=== PATIENT | female | born 1970 | race Caucasian/White ===

== ENCOUNTER → 2016-06-03 | Outpatient (CLI) | payer SELFPAY ==
[~2016-06-03] MED LIST: ABILIFY5 MG PO; ASPIR 8181 M1 PO; CITRUS CALCIUM1 EAC1 PO; CLARITIN,ALAVAR10 MG PO; COUMADIN,JANTOVE5 MG PO; COUMADIN4 MG PO; COUMADIN6 MG PO; CRESTOR10 MG PO; Celexa PO; FEOSOL325 MG PO; GEODON60 MG PO; IRON325 MG PO; LEVOTHROID112 MCG PO; LEVOXYL137 MCG PO; LOPRESSOR25 MG PO; MULTI PURPOSE MC; NASONEX17 GM BOTH NARES; PLAVIX75 MG PO; PROTONIX40 MG PO; THERAGRAN1 TABLET PO; TRILAFON8 M1 PO; Tums PO; WELLBUTRIN XL150 MG PO; ZYRTEC10 M3 PO; Zocor PO; [UNRECOGNIZED DRUG - OTHER] PO
== END | disposition home or self-care (01) ==
LOC: NUC 08:25
DX: R07.9 Chest pain, unspecified (principal); I10 Essential (primary) hypertension; Z95.2 Presence of prosthetic heart valve; Z87.891 Personal history of nicotine dependence
CPT/HCPCS: 78452; 93017; A9500; J2785

== ENCOUNTER → 2017-02-04 | Outpatient (CLI) | payer OTHER | END | disposition home or self-care (01) | LOC: RAD 10:50 | DX: I63.8 Other cerebral infarction (principal); G93.89 Other specified disorders of brain | CPT/HCPCS: 70450 ==

== ENCOUNTER → 2017-08-12 | Outpatient (CLI) | payer SELFPAY | END | disposition home or self-care (01) | LOC: EKG 13:00 | DX: I07.1 Rheumatic tricuspid insufficiency (principal) | CPT/HCPCS: 93306 ==

== ENCOUNTER → 2017-09-20 | Outpatient (CLI) | payer SELFPAY | END | disposition home or self-care (01) | LOC: RAD 08:14 | DX: N28.1 Cyst of kidney, acquired (principal); R39.198 Other difficulties with micturition; R35.0 Frequency of micturition; N18.3 Chronic kidney disease, stage 3 (moderate) | CPT/HCPCS: 76770 ==